=== PATIENT | female | born 1965 | race Caucasian/White ===

== ENCOUNTER 2018-10-15 12:50 | Inpatient (IN) | payer OTHER ==
[~2018-10-15] VITALS: Ht 162.6 cm; Wt 130.6 kg
[2018-10-15] MEDS ORDERED: FLUT1DIS8 INH (13:25)
[2018-10-15] MEDS ORDERED: Aspirin EC81 MG PO (13:25)
[2018-10-15] MEDS ORDERED: METO50ER PO (13:26)
[2018-10-15] MEDS ORDERED: ALBU2.5V5 INH (13:26)
[2018-10-15] MEDS ORDERED: MONT10T PO (13:26)
[2018-10-15] MEDS ORDERED: CLOBETTC TOP (13:26)
[2018-10-15] MEDS ORDERED: POTCHL20ER PO (13:27)
[2018-10-15] MEDS ORDERED: ALBU90OI61 INH (13:27)
[2018-10-15] MEDS ORDERED: WARF5 PO (13:28)
[2018-10-15] MEDS ORDERED: Lasix40 MG PO (13:29)
[2018-10-15 14:06] LABS: Alanine Aminotransfer (ALT/SGP 77 U/L (12-78); Albumin, Blood 3.4 g/dL (3.4-5.0); Albumin/Globulin Ratio 0.9 (0.8-1.8); Alk Phos 70 U/L (50-136); Anion Gap 5 mmol/L (6-16); Aspartate Aminotrans (AST/SGOT 72 U/L (12-37); Bilirubin, Total 1.4 mg/dL (0.1-1.0); Blood Urea Nitrogen 10 mg/dL (8-24); Bun/Creatinine Ratio 21.3 (12.0-20.0); CO2, Blood 34 mmol/L (21-32); Calcium, Blood 8.3 mg/dL (8.5-10.1); Chloride, Blood 101 mmol/L (98-108); Creatinine, Blood 0.47 mg/dL (0.40-1.00); Globulin, Blood 3.9 g/dL (2.2-4.0); Glomerular Filtration Rate >60 (60-); Glucose, Blood 94 mg/dL (70-99); Potassium, Blood 4.2 mmol/L (3.5-5.5); Sodium, Blood 140 mmol/L (136-145); Total Protein, Blood 7.3 g/dL (6.4-8.2); Troponin I 0.031 ng/mL (0.000-0.040)
[2018-10-15 14:52] LABS: BASOPHILS ABSOLUTE AUTO 0.07 K/mm3 (0.00-0.23); BASOPHILS PERCENT AUTO 1 % (0-2); EOSINOPHILS ABSOLUTE AUTO 0.24 K/mm3 (0.00-0.68); EOSINOPHILS PERCENT AUTO 2 % (0-6); Hematocrit 45.1 % (33.0-51.0); Hemoglobin 13.8 g/dL (11.5-16.0); IMMATURE GRAN ABSOLUTE AUTO 0.06 K/mm3 (0.00-0.10); IMMATURE GRAN PERCENT AUTO 1 % (0-1); LYMPHOCYTES ABSOLUTE AUTO 2.28 K/mm3 (0.84-5.20); LYMPHOCYTES PERCENT AUTO 19 % (21-46); MONOCYTES ABSOLUTE AUTO 1.42 K/mm3 (0.16-1.47); MONOCYTES PERCENT AUTO 12 % (4-13); Mean Corpuscular HGB 28.3 pg (26.0-34.0); Mean Corpuscular HGB Conc 30.6 g/dL (31.5-36.5); Mean Corpuscular Volume 92 fL (80-100); Mean Platelet Volume 10.1 fL (9.1-12.4); NEUTROPHILS ABSOLUTE AUTO 8.19 K/mm3 (1.96-9.15); NEUTROPHILS PERCENT AUTO 67 % (41-73); Platelet Count 261 K/mm3 (150-400); RDW Coefficient Variation 14.5 % (11.7-14.2); RDW Standard Deviation 49.3 fL (35.1-46.3); Red Blood Cell Count 4.88 M/mm3 (3.80-5.20); White Blood Cell Count 12.26 K/mm3 (4.00-11.30)
[2018-10-15 14:59] LABS: International Normalized Ratio 1.07; Prothrombin Time Results 11.3 Sec (9.7-11.5)
[2018-10-15 18:51] LABS: Source, Urine Clean Catch
[2018-10-15 18:54] LABS: Bilirubin, Urine Neg (Neg); Blood, Urine Neg (Neg); Glucose Qualitative, Urine Neg (Neg); Ketones, Urine 1+ (Neg); Leukocyte Esterase, Urine Neg (Neg); Nitrite, Urine Neg (Neg); Protein, Urine Neg (Neg); Urobilinogen, Urine NORM (Normal); pH, Urine 6.5 (5.0-8.0)
[2018-10-15 19:03] LABS: Appearance, Urine Clear (Clear); Color, Urine Yellow (P-Yellow)
[2018-10-15 22:49] LABS: Troponin I 0.031 ng/mL (0.000-0.040)
[2018-10-15 23:11] LABS: Creatine Kinase MB 25.5 ng/mL (0.0-3.6)
--- NOTE | 2018-10-16 04:23 | NUR ---
SHIFT SUMMARY: PATIENT APPEARS TO HAVE CONVERTED TO SINUS RHYTHM AT APPROX 2200. PATIENT VSS ALL SHIFT, UP TO BATHROOM SEVERAL TIMES, DAUGHTER AT BEDSIDE, O2 TITRATED DOWN THROUGHOUT SHIFT.
[2018-10-16 06:13] LABS: Hemoglobin 13.5 g/dL (11.5-16.0); Mean Corpuscular HGB 28.4 pg (26.0-34.0); Mean Corpuscular HGB Conc 30.7 g/dL (31.5-36.5); Mean Corpuscular Volume 93 fL (80-100); Mean Platelet Volume 9.9 fL (9.1-12.4); Platelet Count 240 K/mm3 (150-400); RDW Coefficient Variation 14.5 % (11.7-14.2); RDW Standard Deviation 49.5 fL (35.1-46.3); Red Blood Cell Count 4.75 M/mm3 (3.80-5.20); White Blood Cell Count 9.01 K/mm3 (4.00-11.30)
[2018-10-16 06:28] LABS: International Normalized Ratio 1.11; Prothrombin Time Results 11.7 Sec (9.7-11.5)
[2018-10-16 06:38] LABS: Alanine Aminotransfer (ALT/SGP 68 U/L (12-78); Albumin, Blood 3.4 g/dL (3.4-5.0); Albumin/Globulin Ratio 0.8 (0.8-1.8); Alk Phos 66 U/L (50-136); Anion Gap 3 mmol/L (6-16); Aspartate Aminotrans (AST/SGOT 57 U/L (12-37); Bilirubin, Total 1.2 mg/dL (0.1-1.0); Blood Urea Nitrogen 9 mg/dL (8-24); Bun/Creatinine Ratio 13.9 (12.0-20.0); CO2, Blood 41 mmol/L (21-32); Calcium, Blood 8.5 mg/dL (8.5-10.1); Chloride, Blood 97 mmol/L (98-108); Creatinine, Blood 0.65 mg/dL (0.40-1.00); Glomerular Filtration Rate >60 (60-); Glucose, Blood 111 mg/dL (70-99); Potassium, Blood 3.5 mmol/L (3.5-5.5); Sodium, Blood 141 mmol/L (136-145); Total Protein, Blood 7.4 g/dL (6.4-8.2)
[2018-10-16 06:44] LABS: Troponin I 0.016 ng/mL (0.000-0.040)
[2018-10-16 06:57] LABS: Creatine Kinase MB 19.8 ng/mL (0.0-3.6); Creatine Kinase MB Index 2.1 (0.0-4.0)
[2018-10-16 11:03] LABS: Source, Urine Catheter
--- NOTE | 2018-10-16 11:19 | NUR ---
PT OFF FLOOR FOR STAT CT CHEST WITH CONTRAST.
[2018-10-16 11:24] LABS: Bilirubin, Urine Neg (Neg); Blood, Urine Neg (Neg); Glucose Qualitative, Urine Neg (Neg); Ketones, Urine Neg (Neg); Leukocyte Esterase, Urine Neg (Neg); Nitrite, Urine Neg (Neg); Protein, Urine Neg (Neg); Specific Gravity, Urine 1.005 (1.003-1.022); Urobilinogen, Urine NORM (Normal)
[2018-10-16 11:39] LABS: Appearance, Urine Clear (Clear); Color, Urine Pale Yellow (P-Yellow)
[2018-10-16 15:27] LABS: Alanine Aminotransfer (ALT/SGP 74 U/L (12-78); Albumin, Blood 3.4 g/dL (3.4-5.0); Albumin/Globulin Ratio 0.8 (0.8-1.8); Alk Phos 69 U/L (50-136); Anion Gap 5 mmol/L (6-16); Aspartate Aminotrans (AST/SGOT 53 U/L (12-37); Bilirubin, Total 1.4 mg/dL (0.1-1.0); Blood Urea Nitrogen 9 mg/dL (8-24); Bun/Creatinine Ratio 13.4 (12.0-20.0); CO2, Blood 43 mmol/L (21-32); Calcium, Blood 8.6 mg/dL (8.5-10.1); Chloride, Blood 91 mmol/L (98-108); Creatinine, Blood 0.67 mg/dL (0.40-1.00); Free Thyroxine 1.48 ng/dL (0.70-1.60); Globulin, Blood 4.3 g/dL (2.2-4.0); Glomerular Filtration Rate >60 (60-); Glucose, Blood 123 mg/dL (70-99); Potassium, Blood 3.3 mmol/L (3.5-5.5); Sodium, Blood 139 mmol/L (136-145); Total Protein, Blood 7.7 g/dL (6.4-8.2)
--- NOTE | 2018-10-16 18:13 | NUR ---
END OF SHIFT; PT WAS HYPOXIC DURING DAY. BIPAP PLACED ON PATIENT AND REMAINED ON BIPAP ONLY WITH BREAKS FOR MEALS. SHE HAS LANGE CATHETER IN PLACE FOR SEVERE HYPOXIA WITH MOVEMENT AND REMAINS ON BIPAP. FAMILY AT BEDSIDE DURING DAY. PULMONARY IS CONSULTED BUT HAS NOT SEEN PT OF YET. ORDER TO HOLD COUMADIN TODAY AND POSSIBLY RESTART TOMORROW AT 5MG AND HAVE PHARMACY TO MONITOR. HER LUNGS ARE COARSE THROUGHOUT AND SHE HAS A NONPRODUCTIVE COUGH. NOTED THAT PATIENT HAS TINEA TO BOTTOM AND HER INNER THIGHS. LORTISONE CREME IN PT MED BOX FOR THIS. [facility] ONTINUE TO MONITOR THIS PATIENT UNTIL REPORT AND HAND OFF TO NOC SHIFT RN.
--- NOTE | 2018-10-17 03:54 | NUR ---
SHIFT SUMMARY: PATIENT WORE CPAP WITH ONE EPISODE OF DESAT TO 85%, CPAP BLEEDIN INCREASED TO 8L AND PATIENT MAINTAINED >90 THE REST OF THE SHIFT. ALL OTHER VSS, CALL LIGHT WITHIN REACH, DAUGHTER AT BEDSIDE.
[2018-10-17 04:17] LABS: BASOPHILS ABSOLUTE AUTO 0.06 K/mm3 (0.00-0.23); BASOPHILS PERCENT AUTO 1 % (0-2); EOSINOPHILS ABSOLUTE AUTO 0.21 K/mm3 (0.00-0.68); EOSINOPHILS PERCENT AUTO 2 % (0-6); Hematocrit 43.5 % (33.0-51.0); Hemoglobin 13.6 g/dL (11.5-16.0); IMMATURE GRAN ABSOLUTE AUTO 0.04 K/mm3 (0.00-0.10); IMMATURE GRAN PERCENT AUTO 0 % (0-1); LYMPHOCYTES ABSOLUTE AUTO 1.95 K/mm3 (0.84-5.20); LYMPHOCYTES PERCENT AUTO 22 % (21-46); MONOCYTES ABSOLUTE AUTO 1.17 K/mm3 (0.16-1.47); MONOCYTES PERCENT AUTO 13 % (4-13); Mean Corpuscular HGB 27.8 pg (26.0-34.0); Mean Corpuscular HGB Conc 31.3 g/dL (31.5-36.5); Mean Platelet Volume 9.6 fL (9.1-12.4); NEUTROPHILS ABSOLUTE AUTO 5.52 K/mm3 (1.96-9.15); NEUTROPHILS PERCENT AUTO 62 % (41-73); Platelet Count 266 K/mm3 (150-400); RDW Coefficient Variation 14.5 % (11.7-14.2); RDW Standard Deviation 46.2 fL (35.1-46.3); Red Blood Cell Count 4.89 M/mm3 (3.80-5.20); White Blood Cell Count 8.95 K/mm3 (4.00-11.30)
[2018-10-17 04:23] LABS: Mean Corpuscular Volume 89 fL (80-100)
[2018-10-17 04:32] LABS: International Normalized Ratio 1.15
--- NOTE | 2018-10-17 09:04 | NUR ---
Cardizem gtt was turned off at this time. Heartrate is holding in 90s at this time. Also spoke with the pt regarding bowel care. Encouraged activity, and higher fiber choices on her menu choices. Spoke with Dr. Guadalupe at this time and informed him of the above.
--- NOTE | 2018-10-17 09:33 | NUR ---
Heart rate is 100-115 with activity of ambulation to the bathroom to brush her teeth. Pt is at 91% spo2 with 3 l/min O2 delivery with activity of standing next to the bed and talking. States she feels like her breathing is "better " than yesterday, but not back to normal. She told Dr. Schmitt that she would like to go home today.
--- NOTE | 2018-10-17 13:41 | NUR ---
Ambriz catheter dc'd at this time. The pt states she wants to sleep after eating lunch. She is wearing the home CPAP machine and her daughter and are at the bedside.
[2018-10-17 14:34] LABS: Alanine Aminotransfer (ALT/SGP 59 U/L (12-78); Albumin, Blood 3.3 g/dL (3.4-5.0); Albumin/Globulin Ratio 0.8 (0.8-1.8); Alk Phos 61 U/L (50-136); Anion Gap 3 mmol/L (6-16); Aspartate Aminotrans (AST/SGOT 42 U/L (12-37); Bilirubin, Total 1.4 mg/dL (0.1-1.0); Blood Urea Nitrogen 7 mg/dL (8-24); Bun/Creatinine Ratio 11.2 (12.0-20.0); CO2, Blood 45 mmol/L (21-32); Calcium, Blood 8.9 mg/dL (8.5-10.1); Chloride, Blood 89 mmol/L (98-108); Creatinine, Blood 0.63 mg/dL (0.40-1.00); Globulin, Blood 4.3 g/dL (2.2-4.0); Glomerular Filtration Rate >60 (60-); Glucose, Blood 143 mg/dL (70-99); Potassium, Blood 3.5 mmol/L (3.5-5.5); Sodium, Blood 137 mmol/L (136-145); Total Protein, Blood 7.6 g/dL (6.4-8.2)
--- NOTE | 2018-10-17 17:32 | NUR ---
The pt states that her breathing feels better. This evening she is cheerful, pleasantly conversant, cooperative, and managing increased activity. She has a good appetite, and has been voiding in the bathroom since Ambriz was dc'd this afternoon. Also has had a bowel movement after ambulation in the hallway with her daughter. She ambulated with 4 l/min of oxygen delivery, maintaining spo2 of 96% during the activity. At rest she is wearing oxygen at 2 l/min. Heparin gtt dc'd, and coumadin dose given per orders this evening with her dinner meal.
--- NOTE | 2018-10-17 20:26 | NUR ---
ASSUMED CARE OF PT AT 1915. REPORT RECEIVED. PT PRESENTS COMING FROM BATHROOM SECONDARY TO AFFECTIVE DIURETIC THERAPY. PT PLEASANT AND COOPERATIVE WITH CARE AND ASSESSMENT. STATES SHE IS FEELING SOME BETTER. FAMILY AT BEDSIDE. DISCUSSED PLAN OF CARE FOR THIS NIGHT. REVIEWED CHART AND PLAN OF CARE FOR THIS PT.
--- NOTE | 2018-10-17 21:45 | NUR ---
PT CONTINUES TO HAVE COUGH THAT IS PRODUCTIVE. KEEPS HER OXYGEN NEAR LIPS SECONDARY TO PT BEING A MOUTH-BREATHER. THIS IS AFFECTIVE TO KEEP SATURATIONS 88-91 PERCENT. HAD INCREASED O2 FLOW TO 3 L/M SECONDARY TO DESATS TO 87 PERCENT AFTER COUGH. WILL MONITOR FOR ABILITY TO TITRATE DOWN. PT TO WEAR CPAP THIS NIGHT WHEN READY FOR BED. SHE DID ASK, AND IS GIVEN MELATONIN TO HELP HER REST THIS NIGHT. LOTRISONE APPLIED TO FEET SECONDARY TO RASH. MED PLACED BETWEEN TOES WELL. ALSO APPLIED TO POSTERIOR THIGHS. RASH APPEARS DIFFUSE AND SOMEWHAT FLAKY.
--- NOTE | 2018-10-18 01:00 | NUR ---
PT HAS BEEN COMPLIANT WITH WEARING HER HOME BIPAP UNIT. HAS HAD SOME ISSUES WITH LEAKS FROM MASK. REFITTED WHICH HAS IMPROVED PT'S SATURATIONS. HAS BEEN UP TO BATHROOM WITH MINIMINAL ASSIST WHEREAS SHE VOIDS Q.S.
[2018-10-18 04:26] LABS: BASOPHILS ABSOLUTE AUTO 0.07 K/mm3 (0.00-0.23); BASOPHILS PERCENT AUTO 1 % (0-2); EOSINOPHILS ABSOLUTE AUTO 0.24 K/mm3 (0.00-0.68); EOSINOPHILS PERCENT AUTO 3 % (0-6); Hematocrit 47.3 % (33.0-51.0); Hemoglobin 14.4 g/dL (11.5-16.0); IMMATURE GRAN ABSOLUTE AUTO 0.04 K/mm3 (0.00-0.10); IMMATURE GRAN PERCENT AUTO 0 % (0-1); LYMPHOCYTES ABSOLUTE AUTO 2.18 K/mm3 (0.84-5.20); LYMPHOCYTES PERCENT AUTO 22 % (21-46); MONOCYTES ABSOLUTE AUTO 1.23 K/mm3 (0.16-1.47); MONOCYTES PERCENT AUTO 13 % (4-13); Mean Corpuscular HGB 27.5 pg (26.0-34.0); Mean Corpuscular HGB Conc 30.4 g/dL (31.5-36.5); Mean Corpuscular Volume 90 fL (80-100); Mean Platelet Volume 9.6 fL (9.1-12.4); NEUTROPHILS ABSOLUTE AUTO 5.96 K/mm3 (1.96-9.15); NEUTROPHILS PERCENT AUTO 61 % (41-73); Platelet Count 296 K/mm3 (150-400); RDW Coefficient Variation 14.4 % (11.7-14.2); RDW Standard Deviation 47.3 fL (35.1-46.3); Red Blood Cell Count 5.23 M/mm3 (3.80-5.20); White Blood Cell Count 9.72 K/mm3 (4.00-11.30)
[2018-10-18 04:38] LABS: International Normalized Ratio 1.04
--- NOTE | 2018-10-18 05:47 | NUR ---
PT CONTINUES WITH BIPAP WITH 10 LITER BLEED IN. PT HAS HAD MAIN COMPLAINT THIS SHIFT OF BEING COLD. BLANKETS FROM WARMER HAVE BEEN PROVIDED. PT HAS REMAINED AFEBRILE. HAS BEEN ABLE TO GET UP TO BATHROOM WITH SOME ASSIST FROM DAUGHTER OR STAFF. HAS REMAINED PLEASANT AND COOPERATIVE WITH CARE. WILL CONTINUE TO MONITOR PT AND WILL REPORT OFF TO ONCOMING RN.
--- NOTE | 2018-10-18 14:16 | NUR ---
While sleeping on her left side, wearing the auto CPAP, with 3 l of oxygen bleed-in, spo2 dipped to 82%. The pt was awakened for a lab draw incidentally at the same time, so the pt put on the nasal cannula and spo2 improved to 93%. Bleed-in was increased to 4 l/min to the autoCpap and the pt states she wants to go back to napping.
[2018-10-18 15:06] LABS: Alanine Aminotransfer (ALT/SGP 58 U/L (12-78); Albumin, Blood 3.5 g/dL (3.4-5.0); Albumin/Globulin Ratio 0.8 (0.8-1.8); Alk Phos 63 U/L (50-136); Aspartate Aminotrans (AST/SGOT 49 U/L (12-37); Bilirubin, Total 1.4 mg/dL (0.1-1.0); Blood Urea Nitrogen 10 mg/dL (8-24); Bun/Creatinine Ratio 13.9 (12.0-20.0); Calcium, Blood 9.7 mg/dL (8.5-10.1); Chloride, Blood 90 mmol/L (98-108); Creatinine, Blood 0.72 mg/dL (0.40-1.00); Globulin, Blood 4.4 g/dL (2.2-4.0); Glomerular Filtration Rate >60 (60-); Glucose, Blood 109 mg/dL (70-99); Sodium, Blood 136 mmol/L (136-145); Total Protein, Blood 7.9 g/dL (6.4-8.2)
[2018-10-18 15:08] LABS: Anion Gap Unable to Calculate mmol/L (6-16)
[2018-10-18 15:09] LABS: CO2, Blood >45 mmol/L (21-32)
--- NOTE | 2018-10-18 15:18 | NUR ---
Received critical value of CO2 >45. Call to Dr. Boudreaux; due to patient's previous values and current orders changing the diuretics, there is no need for intervention or treatment at this time. Pt's condition remains unchanged at this time.
[2018-10-18 16:03] LABS: Base Excess Venous 23.8 mmol/L; Bicarbonate Venous 43.6 mmol/L (24.0-30.0); PCO2 Venous 80.1 mmHg (38-42); PO2 Venous 135 mmHg (38-42); pH Blood Venous 7.39 (7.34-7.37)
--- NOTE | 2018-10-18 18:37 | NUR ---
Ambulatory in the hallway, walking one full loop around PCU/ICU areas, while on oxygen, with her daughter. She is pleasantly conversant during the activity. Cheerful, without any complaints.
[2018-10-19 03:35] LABS: Base Excess Venous 23.9 mmol/L; Bicarbonate Venous 43.8 mmol/L (24.0-30.0); PO2 Venous 47.3 mmHg (38-42); pH Blood Venous 7.43 (7.34-7.37)
[2018-10-19 03:44] LABS: BASOPHILS ABSOLUTE AUTO 0.07 K/mm3 (0.00-0.23); BASOPHILS PERCENT AUTO 1 % (0-2); EOSINOPHILS ABSOLUTE AUTO 0.32 K/mm3 (0.00-0.68); EOSINOPHILS PERCENT AUTO 4 % (0-6); Hematocrit 42.8 % (33.0-51.0); Hemoglobin 13.2 g/dL (11.5-16.0); IMMATURE GRAN ABSOLUTE AUTO 0.03 K/mm3 (0.00-0.10); IMMATURE GRAN PERCENT AUTO 0 % (0-1); LYMPHOCYTES ABSOLUTE AUTO 2.05 K/mm3 (0.84-5.20); LYMPHOCYTES PERCENT AUTO 23 % (21-46); MONOCYTES ABSOLUTE AUTO 1.09 K/mm3 (0.16-1.47); MONOCYTES PERCENT AUTO 12 % (4-13); Mean Corpuscular HGB 28.3 pg (26.0-34.0); Mean Corpuscular HGB Conc 30.8 g/dL (31.5-36.5); Mean Corpuscular Volume 92 fL (80-100); Mean Platelet Volume 9.5 fL (9.1-12.4); NEUTROPHILS ABSOLUTE AUTO 5.46 K/mm3 (1.96-9.15); NEUTROPHILS PERCENT AUTO 61 % (41-73); Platelet Count 257 K/mm3 (150-400); RDW Coefficient Variation 14.3 % (11.7-14.2); RDW Standard Deviation 47.9 fL (35.1-46.3); Red Blood Cell Count 4.67 M/mm3 (3.80-5.20); White Blood Cell Count 9.02 K/mm3 (4.00-11.30)
[2018-10-19 03:58] LABS: International Normalized Ratio 1.07; Prothrombin Time Results 11.3 Sec (9.7-11.5)
[2018-10-19 04:05] LABS: Blood Urea Nitrogen 10 mg/dL (8-24); Bun/Creatinine Ratio 15.2 (12.0-20.0); Calcium, Blood 9.1 mg/dL (8.5-10.1); Chloride, Blood 92 mmol/L (98-108); Creatinine, Blood 0.66 mg/dL (0.40-1.00); Glomerular Filtration Rate >60 (60-); Glucose, Blood 112 mg/dL (70-99); Potassium, Blood 3.7 mmol/L (3.5-5.5); Sodium, Blood 139 mmol/L (136-145)
[2018-10-19 04:08] LABS: Anion Gap Unable to Calculate mmol/L (6-16); CO2, Blood >45 mmol/L (21-32)
--- NOTE | 2018-10-19 06:02 | NUR ---
SHIFT SUMMARY PATIENT PLEASENT AND COOPERATIVE BUT SOMEWHAT ANXIOUS LAST NIGHT. PATIENT DID COMPLAIN OF CHEST CRAMPING THAT SHE STATED WAS A 5/10 LAST NIGHT BEFORE BED. PATIENT PROVIDED WITH TYENOL AND WAS ABLE TO EASILY FALL ASLEEP WHILE USING THE BIPAP. WHEN PATIENT WOKE UP SEVERAL HOURS LATER SHE STATED THAT SHE HAD NO CHEST CRAMPING OR PAIN ANY LONGER. PATIENT USED THE BIPAP AND THE CONTINUOUS BIOX LAST NIGHT. PATIENT APPEARED TO SLEEP WELL LAST NIGHT. PATIENT UP TO THE BATHROOM SEVERAL TIMES WITH SBA. PATIENT'S DAUGHTER STAYED THE NIGHT AT THE BEDSIDE. PATIENT CURRENTLY APPEARS TO BE ASLEEP. CALL LIGHT WITHIN REACH. WILL CONTINUE TO MONITOR PATIENT AND REPORT TO MELISSA MARIA.
--- NOTE | 2018-10-19 18:02 | NUR ---
END OF SHIFT; PT HAD NO ACUTE CHANGES IN CONDITION NOTED DURING DAY. SHE REMAINS ON BIPAP AT REST. VITOR REMAINS AT ABEDSIDE THROUGHOUT DAY. PT HAS PLEASANT AFFECT. LUNGS ARE DIMINISHED THROUGHOUT. SHE HAS OCCASIONAL NONPRODUCTIVE COUGH NOTED. REMAINS IN AFLUTTER RHYTHM PER PERSONAL LINES APPRAISER SIXTO. SHE AMBULATES TO AND FROM BATHROOM WITHOUT ASSIST. USES CALL LIGHT APPROPRIATELY. LOTRISONE CREME PLACED ON TINEA ON BUTTOCKS AND FEET. PT DENIES ANY CP OR DISCOMFORT DOES EXPRESS THAT SHE IS VERY TIRED. WILL CONTINUE TO MONITOR THIS PATIENT CLOSELY UNTIL REPORT AND HAND OFF TO NOC SHIFT RN.
[2018-10-20 03:38] LABS: BASOPHILS ABSOLUTE AUTO 0.07 K/mm3 (0.00-0.23); BASOPHILS PERCENT AUTO 1 % (0-2); EOSINOPHILS ABSOLUTE AUTO 0.44 K/mm3 (0.00-0.68); EOSINOPHILS PERCENT AUTO 5 % (0-6); Hematocrit 42.5 % (33.0-51.0); Hemoglobin 13.1 g/dL (11.5-16.0); IMMATURE GRAN ABSOLUTE AUTO 0.03 K/mm3 (0.00-0.10); IMMATURE GRAN PERCENT AUTO 0 % (0-1); LYMPHOCYTES ABSOLUTE AUTO 1.89 K/mm3 (0.84-5.20); LYMPHOCYTES PERCENT AUTO 20 % (21-46); MONOCYTES PERCENT AUTO 12 % (4-13); Mean Corpuscular HGB 28.1 pg (26.0-34.0); Mean Corpuscular HGB Conc 30.8 g/dL (31.5-36.5); Mean Corpuscular Volume 91 fL (80-100); Mean Platelet Volume 9.8 fL (9.1-12.4); NEUTROPHILS ABSOLUTE AUTO 5.91 K/mm3 (1.96-9.15); NEUTROPHILS PERCENT AUTO 63 % (41-73); Platelet Count 242 K/mm3 (150-400); RDW Coefficient Variation 14.2 % (11.7-14.2); RDW Standard Deviation 47.7 fL (35.1-46.3); Red Blood Cell Count 4.67 M/mm3 (3.80-5.20); White Blood Cell Count 9.44 K/mm3 (4.00-11.30)
[2018-10-20 03:52] LABS: International Normalized Ratio 1.13; Prothrombin Time Results 11.8 Sec (9.7-11.5)
[2018-10-20 04:59] LABS: PCO2 Arterial 68.9 mmHg (35-45); pH Blood Arterial 7.42 (7.35-7.45)
--- NOTE | 2018-10-20 06:31 | NUR ---
SHIFT SUMMARY PATIENT PLEASENT AND COOPERATIVE THROUGHOUT THE NIGHT. PATIENT APPEARED TO SLEEP WELL THROUGHOUT THE NIGHT WITH NO COMPLAINTS OF PAIN OR DISCOMFORT. PATIENT USED HER M SERIES BIPAP THROUGHOUT THE NIGHT. PATIENT'S DAUGHTER STAYED THE NIGHT AT THE BEDSIDE. CALL LIGHT WITHIN REACH. PATIENT VERY HOPEFUL TO GO HOME TODAY. PATIENT CURRENTLY APPEARS TO BE ASLEEP. WILL CONTINUE TO MONITOR PATIENT AND REPORT TO ONCOMING RN.
[2018-10-20] MEDS ORDERED: CLOBETTC TOP (10:25)
[2018-10-20] MEDS ORDERED: DILT30 PO (10:26)
== END 2018-10-20 11:15 | disposition home or self-care (01) | DRG 291 ==
LOC: ER 12:50 → PCU 15:55
PROVIDERS: Emergency Medicine; Internal Medicine Critical Care Medicine; ADMIT Internal Medicine
DX: I11.0 Hypertensive heart disease with heart failure (principal); J96.21 Acute and chronic respiratory failure with hypoxia; J98.11 Atelectasis; E66.2 Morbid (severe) obesity with alveolar hypoventilation; Z68.42 Body mass index [BMI] 45.0-49.9, adult; I50.43 Acute on chronic combined systolic (congestive) and diastolic (congestive) heart failure; I48.91 Unspecified atrial fibrillation; G47.33 Obstructive sleep apnea (adult) (pediatric); J45.909 Unspecified asthma, uncomplicated; Z79.01 Long term (current) use of anticoagulants; Z79.82 Long term (current) use of aspirin; Z79.899 Other long term (current) drug therapy
CPT/HCPCS: 36415; 36600; 71045; 71260; 80048; 80053; 81003; 82550; 82553; 82803; 82947; 83735; 83880; 84132; 84145; 84439; 84443; 84484; 85025; 85027; 85379; 85610; 85730; 87070; 87205; 93005; 93010; 94640; 94660; 94761; 94762; 96365; 96366; 96367; 96375; 96376; 99285-25; A9270; C8929; J1644; J1940; J1956; Q9957; Q9967